=== PATIENT | female | born 1995 | race Caucasian/White ===

== ENCOUNTER 2020-02-15 13:26 | Emergency (ER) | payer OTHER ==
[~2020-02-15] VITALS: Ht 167.6 cm; Wt 111.6 kg
[2020-02-15 13:35] VITALS: Ht 167.6 cm; Wt 111.6 kg
[2020-02-15 14:17] VITALS: BP 126/83
== END 2020-02-15 14:17 | disposition home or self-care (01) ==
LOC: ED 13:26
DX: H53.8 Other visual disturbances (principal); Z88.2 Allergy status to sulfonamides